=== PATIENT | female | born 1945 | race Caucasian/White ===

== ENCOUNTER 2019-09-26 15:52 | Inpatient (IN) ==
[2019-09-26 16:34] LABS: ABS Basophils 0.1 10^3/ul (0-0.2); ABS Eosinophils 0.2 10^3/ul (0-0.6); ABS Lymphocytes 1.4 10^3/ul (1.0-4.8); ABS Monocytes 0.5 10^3/ul (0-0.8); ABS Neutrophils 3.4 10^3/ul (1.5-7.7); Eosinophil % 3.1 %; Hematocrit 37 % (35-47); Hemoglobin 12.6 g/dL (12.0-16.0); Lymphocyte % 25.3 %; Mean Corpuscular HGB Conc 34 g/dL (31-36); Mean Corpuscular Hemoglobin 29 pg (27-31); Mean Corpuscular Volume 84 fL (80-97); Mean Platelet Volume 7.4 fL (7.4-10.4); Nucleated Red Blood Cells % 0.1; Platelet Count 284 10^3/uL (150-450); Red Blood Count 4.44 10^6 /uL (3.70-4.87); Red Cell Distribution Width 14 % (10-15); White Blood Count 5.5 10^3/uL (3.5-10.8)
[2019-09-26 16:53] LABS: Albumin 3.7 g/dL (3.2-5.2); Albumin/Globulin Ratio 1.1 (1-3); Calcium 9.4 mg/dL (8.6-10.3); EGFR African American 73.5 (>60); EGFR Non-African American 60.8 (>60); Globulin 3.5 g/dL (2-4); Potassium 3.6 mmol/L (3.5-5.0); Total Bilirubin 0.5 mg/dL (0.2-1.0); Total Protein 7.2 g/dL (6.4-8.9)
[2019-09-26 16:54] LABS: Troponin I 0.01 ng/mL (<0.03)
[2019-09-26] MEDS ORDERED: Iohexol 350 (CONTRAST) 500 ML MDV IV ONE (17:32)
[2019-09-26] MEDS ORDERED: Albuterol 2.5mg/3 ml (0.083%) NEB.SOLN INH PRN (21:07)
[2019-09-26] MEDS: Morphine 2 MG/ML SYRINGE IV PRN (21:37)
[2019-09-26 22:16] LABS: Activated Partial Thrombo Time 30.1 seconds (26.0-38.0); INR 1.09 (0.82-1.09)
[2019-09-26] MEDS: Heparin 5000 UNITS/ML 1 mL VIAL SUBCUT SCH (23:00)
[2019-09-27] MEDS: Heparin 5000 UNITS/ML 1 mL VIAL SUBCUT SCH ×3 (05:59→20:23)
[2019-09-27 06:03] LABS: ABS Basophils 0.1 10^3/ul (0-0.2); ABS Eosinophils 0.2 10^3/ul (0-0.6); ABS Lymphocytes 1.4 10^3/ul (1.0-4.8); ABS Monocytes 0.6 10^3/ul (0-0.8); ABS Neutrophils 3.9 10^3/ul (1.5-7.7); Eosinophil % 2.6 %; Hematocrit 34 % (35-47); Hemoglobin 11.8 g/dL (12.0-16.0); Lymphocyte % 22.9 %; Mean Corpuscular HGB Conc 35 g/dL (31-36); Mean Corpuscular Hemoglobin 29 pg (27-31); Mean Corpuscular Volume 83 fL (80-97); Mean Platelet Volume 7.4 fL (7.4-10.4); Platelet Count 251 10^3/uL (150-450); Red Blood Count 4.11 10^6 /uL (3.70-4.87); Red Cell Distribution Width 14 % (10-15); White Blood Count 6.1 10^3/uL (3.5-10.8)
[2019-09-27 06:32] LABS: Potassium 4.1 mmol/L (3.5-5.0)
[2019-09-27 06:38] LABS: BUN/Creatinine Ratio 19.8 (8-20); EGFR African American 78.5 (>60); EGFR Non-African American 64.9 (>60)
[2019-09-27] MEDS: Morphine 2 MG/ML SYRINGE IV PRN (08:50)
[2019-09-28 05:39] LABS: ABS Basophils 0.1 10^3/ul (0-0.2); ABS Eosinophils 0.1 10^3/ul (0-0.6); ABS Lymphocytes 1.2 10^3/ul (1.0-4.8); ABS Monocytes 0.6 10^3/ul (0-0.8); ABS Neutrophils 3.5 10^3/ul (1.5-7.7); Eosinophil % 2.4 %; Hematocrit 34 % (35-47); Hemoglobin 11.6 g/dL (12.0-16.0); Lymphocyte % 22.2 %; Mean Corpuscular HGB Conc 34 g/dL (31-36); Mean Corpuscular Hemoglobin 28 pg (27-31); Mean Corpuscular Volume 83 fL (80-97); Mean Platelet Volume 7.8 fL (7.4-10.4); Platelet Count 234 10^3/uL (150-450); Red Blood Count 4.09 10^6 /uL (3.70-4.87); Red Cell Distribution Width 13 % (10-15); White Blood Count 5.5 10^3/uL (3.5-10.8)
[2019-09-28 05:56] LABS: EGFR African American 82.9 (>60); EGFR Non-African American 68.5 (>60); Potassium 3.9 mmol/L (3.5-5.0)
[2019-09-28] MEDS: Heparin 5000 UNITS/ML 1 mL VIAL SUBCUT SCH (06:06)
[2019-09-28 07:39] VITALS: BP 152/60
== END 2019-09-28 11:20 | disposition home or self-care (01) | DRG 181 ==
LOC: ED 15:52 → MED 20:42
PROVIDERS: ADMIT Nurse Practitioner Family; ATTEND Internal Medicine

== ENCOUNTER 2020-01-04 23:47 | Inpatient (IN) ==
[2020-01-05] MEDS ORDERED: Furosemide 40 mg/4 ml IV VIAL IV SLOW PU ONE (01:37)
[2020-01-05 01:44] LABS: INR 1.62 (0.82-1.09)
[2020-01-05 01:47] LABS: Albumin 3.2 g/dL (3.2-5.2); Albumin/Globulin Ratio 0.9 (1-3); BUN/Creatinine Ratio 53.4 (8-20); Calcium 8.8 mg/dL (8.6-10.3); EGFR African American 94.8 (>60); EGFR Non-African American 78.4 (>60); Globulin 3.6 g/dL (2-4); Potassium 2.9 mmol/L (3.5-5.0); Total Bilirubin 0.6 mg/dL (0.2-1.0); Total Protein 6.8 g/dL (6.4-8.9)
[2020-01-05 01:49] LABS: Troponin I 0.01 ng/mL (<0.03)
[2020-01-05 02:24] LABS: TSH Ultra Thyroid Stim Horm 3.34 mcIU/mL (0.34-5.60)
[2020-01-05] MEDS ORDERED: KCL 10 MEQ/50 ML IVPREMIX 10 MEQ/50 ML BAG IV ONE (02:32)
[2020-01-05] MEDS ORDERED: Iohexol 350 (CONTRAST) 500 ML MDV IV ONE (02:41)
[2020-01-05 02:48] LABS: Hematocrit 12 % (35-47); Mean Corpuscular HGB Conc 35 g/dL (31-36); Mean Corpuscular Hemoglobin 32 pg (27-31); Mean Corpuscular Volume 93 fL (80-97); Mean Platelet Volume 9.3 fL (7.4-10.4); Platelet Count 34 10^3/uL (150-450); Red Blood Count 1.23 10^6 /uL (3.70-4.87); Red Cell Distribution Width 16 % (10-15); White Blood Count 2.4 10^3/uL (3.5-10.8)
[2020-01-05 03:15] LABS: Hematocrit 14 % (35-47); Hemoglobin 4.8 g/dL (12.0-16.0)
[2020-01-05] MEDS ORDERED: Potassium Chlor 20 meq TAB.ER PO ONE ×2 (04:18→18:54)
[2020-01-05] MEDS ORDERED: Potassium Chloride LIQUID 20 MEQ/15 ML LIQUID PO ONE (05:07)
[2020-01-05] MEDS ORDERED: Cefepime ADVAN 1 GM in NS 0.9% 50 ML 50 ML IVPB SCH (06:00)
[2020-01-05] MEDS ORDERED: Albuterol 2.5mg/3 ml (0.083%) NEB.SOLN INH PRN (06:16)
[2020-01-05] MEDS ORDERED: Ondansetron 4 mg VIAL 2 MG/ML 2 ml VIAL IV PRN (06:16)
[2020-01-05 07:02] LABS: ABS Lymphocytes 0.5 10^3/ul (1.0-4.8); ABS Monocytes 0.4 10^3/ul (0-0.8); ABS Neutrophils 1.5 10^3/ul (1.5-7.7); ABS Nucleated RBC 0.2 10^3/ul; Eosinophil % 0.1 %; Lymphocyte % 20.7 %; Nucleated Red Blood Cells % 7.4
[2020-01-05] MEDS: Magic MouthWash1-BEN/MAAL/LIDO 180 ML BTL SWISH SPIT SCH ×5 (07:43→21:14)
[2020-01-05] MEDS: Potassium Chloride LIQUID 20 MEQ/15 ML LIQUID PO SCH ×2 (07:43→21:14)
[2020-01-05] MEDS: Cefepime 1 GM in Dextrose 1 GM/50 ML BAG IV SCH ×2 (07:43→18:56)
[2020-01-05] MEDS ORDERED: Potassium Chlor 20 meq TAB.ER PO SCH (09:00)
[2020-01-05] MEDS: DOXYcycline 100 MG in NS 0.9% 250 ml 250 ML IVPB SCH ×2 (09:16→17:33)
[2020-01-05 10:54] LABS: Activated Partial Thrombo Time 24.5 seconds (26.0-38.0); Fibrinogen 281.1 mg/dL (110.8-404.3)
[2020-01-05] MEDS: Furosemide 40 mg/4 ml IV VIAL IV SLOW PU SCH (11:50)
[2020-01-05 18:24] LABS: Hematocrit 27 % (35-47); Hemoglobin 9.2 g/dL (12.0-16.0)
[2020-01-05 18:39] LABS: Calcium 8.1 mg/dL (8.6-10.3); EGFR African American 99.5 (>60); EGFR Non-African American 82.3 (>60)
[2020-01-05 18:53] LABS: Potassium 2.7 mmol/L (3.5-5.0)
[2020-01-05] MEDS: KCL 10 MEQ/50 ML IVPREMIX 10 MEQ/50 ML BAG IV SCH ×3 (19:27→23:09)
[2020-01-06 00:13] LABS: Hematocrit 26 % (35-47); Hemoglobin 8.8 g/dL (12.0-16.0)
[2020-01-06] MEDS: DOXYcycline 100 MG in NS 0.9% 250 ml 250 ML IVPB SCH ×2 (05:20→17:46)
[2020-01-06 05:31] LABS: Hematocrit 26 % (35-47); Hemoglobin 8.9 g/dL (12.0-16.0); Mean Corpuscular HGB Conc 35 g/dL (31-36); Mean Corpuscular Hemoglobin 30 pg (27-31); Mean Corpuscular Volume 87 fL (80-97); Platelet Count 24 10^3/uL (150-450); Red Blood Count 2.96 10^6 /uL (3.70-4.87); Red Cell Distribution Width 15 % (10-15); White Blood Count 2.5 10^3/uL (3.5-10.8)
[2020-01-06 05:42] LABS: BUN/Creatinine Ratio 42.6 (8-20); EGFR African American 116.7 (>60); EGFR Non-African American 96.4 (>60); Potassium 3.2 mmol/L (3.5-5.0)
[2020-01-06] MEDS: Cefepime 1 GM in Dextrose 1 GM/50 ML BAG IV SCH ×2 (06:20→17:46)
[2020-01-06 06:22] LABS: Polychromasia 2+
[2020-01-06 06:24] LABS: ABS Lymphocytes 0.4 10^3/ul (1.0-4.8); ABS Monocytes 0.5 10^3/ul (0-0.8); ABS Neutrophils 1.7 10^3/ul (1.5-7.7); ABS Nucleated RBC 0.2 10^3/ul; Lymphocyte % 14.1 %; Nucleated Red Blood Cells % 5.7
[2020-01-06] MEDS ORDERED: Potassium Chloride LIQUID 20 MEQ/15 ML LIQUID PO ONE (07:12)
[2020-01-06 08:04] LABS: Magnesium 1.6 mg/dL (1.9-2.7)
[2020-01-06] MEDS: Magic MouthWash1-BEN/MAAL/LIDO 180 ML BTL SWISH SPIT SCH ×5 (10:13→22:30)
[2020-01-06] MEDS: Potassium Chloride LIQUID 20 MEQ/15 ML LIQUID PO SCH ×2 (10:22→20:12)
[2020-01-06] MEDS: Furosemide 40 mg/4 ml IV VIAL IV SLOW PU SCH ×2 (10:26→11:11)
[2020-01-06] MEDS ORDERED: guaiFENesin 100 mg/5 ml LIQ unit dose cup PO PRN (10:36)
[2020-01-06] MEDS ORDERED: Magnesium Sulfate 2 gm BAG 2 GM/50 ML BAG IVPB ONE (15:26)
[2020-01-07] MEDS: Cefepime 1 GM in Dextrose 1 GM/50 ML BAG IV SCH (05:32)
[2020-01-07] MEDS: DOXYcycline 100 MG in NS 0.9% 250 ml 250 ML IVPB SCH (06:10)
[2020-01-07 07:12] LABS: Calcium 8.2 mg/dL (8.6-10.3); Potassium 4.1 mmol/L (3.5-5.0)
[2020-01-07 07:17] LABS: BUN/Creatinine Ratio 40.6 (8-20); EGFR African American 110.4 (>60); EGFR Non-African American 91.2 (>60); Hematocrit 28 % (35-47); Hemoglobin 9.5 g/dL (12.0-16.0); Mean Corpuscular HGB Conc 35 g/dL (31-36); Mean Corpuscular Hemoglobin 31 pg (27-31); Mean Corpuscular Volume 90 fL (80-97); Mean Platelet Volume 8.7 fL (7.4-10.4); Platelet Count 34 10^3/uL (150-450); Red Blood Count 3.05 10^6 /uL (3.70-4.87); Red Cell Distribution Width 15 % (10-15); White Blood Count 3.1 10^3/uL (3.5-10.8)
[2020-01-07 09:06] LABS: ABS Lymphocytes 0.5 10^3/ul (1.0-4.8); ABS Monocytes 0.4 10^3/ul (0-0.8); ABS Neutrophils 2.2 10^3/ul (1.5-7.7); Eosinophil % 0.3 %; Lymphocyte % 15.3 %; Nucleated Red Blood Cells % 1.1
[2020-01-07] MEDS: Potassium Chloride LIQUID 20 MEQ/15 ML LIQUID PO SCH ×2 (10:19→21:17)
[2020-01-07] MEDS: Furosemide 40 mg/4 ml IV VIAL IV SLOW PU SCH (10:19)
[2020-01-07] MEDS: Magic MouthWash1-BEN/MAAL/LIDO 180 ML BTL SWISH SPIT SCH ×4 (10:19→21:18)
[2020-01-08] MEDS ORDERED: Potassium Chloride LIQUID 20 MEQ/15 ML LIQUID PO SCH (09:00)
[2020-01-08] MEDS: Magic MouthWash1-BEN/MAAL/LIDO 180 ML BTL SWISH SPIT SCH ×2 (10:47→12:17)
[2020-01-08 10:52] VITALS: BP 105/47
== END 2020-01-08 15:00 | disposition home or self-care (01) | DRG 871 ==
LOC: ED 23:47 → ICU 01-05 05:42 → MED 01-06 23:08
PROVIDERS: ADMIT Internal Medicine; ATTEND Internal Medicine

== ENCOUNTER 2020-09-02 14:20 | Inpatient (IN) ==
[2020-09-02 15:15] LABS: ABS Basophils 0.1 10^3/ul (0-0.2); ABS Lymphocytes 0.4 10^3/ul (1.0-4.8); ABS Monocytes 0.6 10^3/ul (0-0.8); Eosinophil % 0.1 %; Hematocrit 32 % (35-47); Hemoglobin 10.4 g/dL (12.0-16.0); Mean Corpuscular HGB Conc 32 g/dL (31-36); Mean Corpuscular Hemoglobin 29 pg (27-31); Mean Corpuscular Volume 90 fL (80-97); Platelet Count 213 10^3/uL (150-450); Red Blood Count 3.59 10^6 /uL (3.70-4.87); Red Cell Distribution Width 17 % (10-15)
[2020-09-02 15:32] LABS: Albumin 3.7 g/dL (3.2-5.2); Albumin/Globulin Ratio 1.3 (1-3); Calcium 9.3 mg/dL (8.6-10.3); EGFR African American 62.2 (>60); EGFR Non-African American 51.4 (>60); Globulin 2.8 g/dL (2-4); Magnesium 1.9 mg/dL (1.9-2.7); Potassium 3.9 mmol/L (3.5-5.0); Total Bilirubin 0.7 mg/dL (0.2-1.0); Total Protein 6.5 g/dL (6.4-8.9)
[2020-09-02] MEDS: Albuterol/Ipratropium NEB.SOL (2.5/0.5 MG) 3 ML NEB.SOLN INH SCH (19:18)
[2020-09-02] MEDS: Potassium Chlor 20 meq TAB.ER PO SCH (21:29)
[2020-09-03] MEDS: Albuterol/Ipratropium NEB.SOL (2.5/0.5 MG) 3 ML NEB.SOLN INH SCH ×4 (08:09→20:08)
[2020-09-03] MEDS: Potassium Chlor 20 meq TAB.ER PO SCH (09:54)
[2020-09-03] MEDS ORDERED: Lorazepam PYXIS KEY PRN (17:13)
[2020-09-03] MEDS ORDERED: LORazepam 2 mg VIAL 1 ml IV PUSH PRN (17:13)
[2020-09-03] MEDS ORDERED: Morphine 10 MG/ML VIAL (1 ml) ONE (17:17)
[2020-09-03] MEDS: Morphine 2 MG/ML SYRINGE IV PRN (19:50)
[2020-09-03] MEDS: Senna TAB 8.6 mg TAB PO SCH (22:28)
[2020-09-03 22:41] LABS: Urine Appearance Clear; Urine Bilirubin Negative (Negative); Urine Blood Negative (Negative); Urine Color Yellow; Urine Glucose Negative (Negative); Urine Ketones Negative (Negative); Urine Nitrite Negative (Negative); Urine Protein Negative (Negative); Urine Specific Gravity 1.016 (1.002-1.030); Urine Urobilinogen Negative (Negative)
[2020-09-04] MEDS: Morphine 2 MG/ML SYRINGE IV PRN ×2 (06:18→20:12)
[2020-09-04] MEDS: Albuterol/Ipratropium NEB.SOL (2.5/0.5 MG) 3 ML NEB.SOLN INH SCH ×4 (06:19→19:30)
[2020-09-04] MEDS: Senna TAB 8.6 mg TAB PO SCH ×2 (09:40→20:13)
[2020-09-04] MEDS ORDERED: Albuterol/Ipratropium NEB.SOL (2.5/0.5 MG) 3 ML NEB.SOLN INH SCH (15:00)
[2020-09-05] MEDS: Albuterol/Ipratropium NEB.SOL (2.5/0.5 MG) 3 ML NEB.SOLN INH SCH ×3 (06:46→19:37)
[2020-09-05] MEDS: Senna TAB 8.6 mg TAB PO SCH ×2 (08:36→19:56)
[2020-09-06] MEDS: Albuterol/Ipratropium NEB.SOL (2.5/0.5 MG) 3 ML NEB.SOLN INH SCH ×4 (00:16→19:27)
[2020-09-06] MEDS: Morphine 2 MG/ML SYRINGE IV PRN ×4 (07:23→18:27)
[2020-09-06] MEDS: Senna TAB 8.6 mg TAB PO SCH ×2 (07:23→20:36)
[2020-09-07] MEDS: Albuterol/Ipratropium NEB.SOL (2.5/0.5 MG) 3 ML NEB.SOLN INH SCH ×2 (02:01→07:19)
[2020-09-07] MEDS: Morphine 2 MG/ML SYRINGE IV PRN (02:15)
[2020-09-07] MEDS: Senna TAB 8.6 mg TAB PO SCH (09:42)
[2020-09-07 12:01] VITALS: BP 101/47
== END 2020-09-07 14:10 | DRG 54 ==
LOC: CHOA 14:20 → MED 14:20 → OBSVTOIN 17:25 → MED 09-06 19:42
PROVIDERS: ADMIT Internal Medicine Hematology & Oncology; ATTEND Internal Medicine